=== PATIENT | male | born 1935 | race Two or more races ===

== ENCOUNTER 2023-11-18 10:48 | Outpatient (CLI) | payer OTHER | END 2023-11-18 10:51 | disposition home or self-care (01) | LOC: NUCLEAR 10:48 | DX: I70.293 Other atherosclerosis of native arteries of extremities, bilateral legs (principal); Z86.72 Personal history of thrombophlebitis; I80.13 Phlebitis and thrombophlebitis of femoral vein, bilateral ==

== ENCOUNTER 2024-01-05 11:11 | Outpatient (CLI) | payer OTHER | END 2024-01-05 11:12 | disposition home or self-care (01) | LOC: NUCLEAR 11:11 | DX: I70.293 Other atherosclerosis of native arteries of extremities, bilateral legs (principal); I80.11 Phlebitis and thrombophlebitis of right femoral vein; I80.12 Phlebitis and thrombophlebitis of left femoral vein; Z86.72 Personal history of thrombophlebitis ==